=== PATIENT | female | born 1955 | race Hispanic/Latino ===

== ENCOUNTER 2016-12-10 08:40 | Emergency (ER) | payer MEDICARE, OTHER ==
[2016-12-10 08:47] VITALS: BMI 18.6
[2016-12-10] MEDS ORDERED: SILVER SULFADIAZINE 1% TP STA (08:52)
[2016-12-10] MEDS ORDERED: Naproxen 550 mg Tab PO STA (08:53)
--- NOTE | 2016-12-10 08:55 | ED PDOC ---
Arrival/HPI - General Chief Complaint: Medical Clearance Time Seen by Provider: 12/10/16 08:45 Historian: Caregiver - History of Present Illness Narrative History of Present Illness (Text): 12/10/16 08:55 Jessi Lieberman is a 61 year old female who was brought to the emergency department for evaluation of sunburn to neck and forehead. Caregiver states that patient was out on a picnic all day yesterday and states that sunscreen was applied. Patient with mental retardation at baseline. Denies any fever, chills, chest pain, shortness of breath, abdominal pain, nausea, vomiting, urinary symptoms, or any other complaints at this time. Time/Duration: Other (yesterday ) Symptom Onset: Gradual Severity Level: Mild Activities at Onset: Light Past Medical History - Provider Review Nursing Documentation Reviewed: Yes - Travel History Have you recently traveled outside [place] w/in the past 3 mons?: Yes - Infectious Disease Hx of Infectious Diseases: None - Tetanus Immunization Tetanus Immunization: Up to Date - Cardiac Hx Cardiac Disorders: No Hx Angina: No Hx Cardiac Arrhythmia: No Hx Circulatory Problems: No Hx Congestive Heart Failure: No Hx Heart Murmur: No Hx Heart Transplant: No Hx Hypertension: No Hx Internal Defibrillator: No Hx Mitral Valve Prolapse: No Hx Pacemaker: No Hx Peripheral Edema: No Hx Peripheral Vascular Disease: No - Pulmonary Hx Asthma: Yes - Neurological Hx Neurological Disorder: No Hx Alzheimer's Disease: No HX Cerebrovascular Accident: No Hx Dementia: No Hx Dizziness: No Hx Meningitis: No Hx Migraine: No Hx Parkinson's Disease: No Hx Seizures: No Hx Transient Ischemic Attacks (TIA): No - HEENT Hx Cataracts: Yes - Renal Hx Renal Disorder: No Hx Dialysis: No Hx Kidney Stones: No Hx Neurogenic Bladder: No Hx Pyelonephritis: No Hx Renal Cancer: No Hx Renal Failure: No - Endocrine/Metabolic Hx Endocrine Disorders: No Hx Adrenal Cancer: No Hx Diabetes Insipidus: No Hx Diabetes Mellitus Type 1: No Hx Diabetes Mellitus Type 2: No Hx Hyperthyroidism: No Hx Hypothyroidism: No Hx Systemic Lupus Erythematosus: No - Hematological/Oncological Hx Blood Disorders: No Hx AIDS: No Hx Anemia: No Hx Cancer: No Hx Chemotherapy: No Hx Cirrhosis: No Hx Hemophilia: No Hx Hepatitis A: No Hx Hepatitis B: No Hx Hepatitis C: No Hx Metastasis: No Hx Shingles: No Hx Sickle Cell Disease: No Hx Unexplained Bleeding: No - Integumentary Hx Dermatological Disorder: No Hx Basal Cell Carcinoma: No Hx Eczema: No Hx Melanoma: No Hx Psoriasis: No Hx Squamous Cell Carcinoma: No - Musculoskeletal/Rheumatological Hx Musculoskeletal Disorders: No Hx Arthritis: No Hx Back Pain: No Hx Degenerative Joint Disease: No Hx Falls: No Hx Fractures: No Hx Gout: No Hx Herniated Disk: No Hx Myasthenia Gravis: No Hx Osteoarthritis: No Hx Osteomyelitis: No Hx Osteoporosis: No Hx Rhabdomyolysis: No Hx Spinal Stenosis: No Hx Unsteady Gait: No - Gastrointestinal Hx Gastrointestinal Disorders: No Hx Colostomy: No Hx Crohn's Disease: No Hx Diverticulitis: No Hx Gall Bladder Disease: No Hx Gastroesophageal Reflux: No Hx Gastrointestinal Ulcer: No Hx Ileostomy: No Hx Liver Failure: No Hx Pancreatitis: No HX Swallowing Problems: No - Genitourinary/Gynecological Hx Genitourinary Disorders: No Hx Hematuria: No Hx Incontinence: No Hx Prostate Problems: No Hx Sexually Transmitted Diseases: No Hx Urinary Tract Infection: No - Psychiatric Hx Substance Use: No Other/Comment: Developmentally Disabled / None verbal / Follows commands / Able to point at things she needs i.e. bathroom, etc. - Surgical History Hx Cardiac Catheterization: No Hx Coronary Stent: No - Anesthesia Hx Anesthesia Reactions: No Hx Malignant Hyperthermia: No - Suicidal Assessment Feels Threatened In Home Enviroment: No Family/Social History - Physician Review Nursing Documentation Reviewed: Yes Family/Social History: Unknown Family HX Smoking Status: Never Smoked Hx Alcohol Use: No Hx Substance Use: No Hx Substance Use Treatment: No Allergies/Home Meds Allergies/Adverse Reactions: Allergies shrimp Allergy (Verified 12/10/16 08:47) ITCHING Home Medications: Home Meds Medication Instructions Recorded Confirmed Fluticasone Propionate 1 spray NS BID 08/11/12 06/21/14 Levothyroxine [Synthroid] 50 mcg PO DAILY 08/11/12 06/21/14 Loratadine [Claritin] 10 mg PO DAILY 08/11/12 06/21/14 Quetiapine Fumarate [Seroquel] 25 mg PO HS 08/11/12 06/21/14 Vitacon 625daily 625 mg PO DAILY 08/11/12 06/21/14 Diazepam [Diazepam] 5 mg PO BID 01/30/14 01/04/15 Divalproex Sodium [Depakote] 500 mg PO Q12 07/17/13 06/21/14 Megestrol Acetate [Megestrol 1 tsp PO DAILY 07/17/13 06/21/14 Acetate] Ammonium Lactate 12% [Lac-Hydrin] 1 ea TP DAILY 09/26/13 06/21/14 Review of Systems - Physician Review All systems were reviewed & negative as marked: Yes - Review of Systems Constitutional: Normal. absent: Fatigue, Fevers Respiratory: Normal. absent: SOB, Cough Cardiovascular: Normal. absent: Chest Pain, Palpitations Gastrointestinal: Normal. absent: Abdominal Pain, Diarrhea, Nausea, Vomiting Genitourinary Female: Normal Skin: Other (Sunburn to forehead and neck ) Physical Exam Vital Signs Reviewed: Yes Vital Signs Temp Pulse Resp BP Pulse Ox 12/10/16 09:29 98 F 75 20 142/53 L 98 12/10/16 08:40 97.4 F L 88 17 170/90 H 97 Temperature: Afebrile Blood Pressure: Normal Pulse: Regular Respiratory Rate: Normal Appearance: Positive for: Well-Appearing, Non-Toxic, Comfortable Pain Distress: None - Systems Exam Head: Present: Atraumatic, Normocephalic Pupils: Present: PERRL Conjunctiva: Present: Normal Mouth: Present: Moist Mucous Membranes Neck: Present: Normal Range of Motion Respiratory/Chest: Present: Clear to Auscultation, Good Air Exchange. No: Respiratory Distress, Accessory Muscle Use Cardiovascular: Present: Regular Rate and Rhythm, Normal S1, S2. No: Murmurs Abdomen: Present: Normal Bowel Sounds. No: Tenderness, Distention, Peritoneal Signs Upper Extremity: Present: Normal Inspection. No: Cyanosis, Edema Lower Extremity: Present: Normal Inspection. No: Edema Neurological: Present: GCS=15, CN II-XII Intact, Motor Func Grossly Intact, Normal Sensory Function Skin: Present: Warm, Dry, Normal Color, Other (1st degree burn to neck and forehead ). No: Rashes Psychiatric: Present: Alert Medical Decision Making ED Course and Treatment: 12/10/16 09:00 Impression: A 61 year old female who presents to the ed for evaluation of sunburn to neck and forehead Plan: -- silver sulfadiazine -- Naproxen Progress Notes: Patient is stable for discharge. Patient in no acute distress. Advised to present to emergency department for worsening symptoms. 1st degree velazquez 12/10/16 10:25 - Medication Orders Current Medication Orders: Discontinued Medications Naproxen (Anaprox Ds) 550 mg PO STAT STA Stop: 12/10/16 08:54 Last Admin: 12/10/16 09:00 Dose: 550 mg Silver Sulfadiazine (Silver Sulfadiazine) 25 gm TP STAT STA Stop: 12/10/16 08:53 Last Admin: 12/10/16 09:28 Dose: 25 gm - Scribe Statement The provider has reviewed the documentation as recorded by the Deann Adams Provider Attestation: All medical record entries made by the Deann were at my direction and personally dictated by me. I have reviewed the chart and agree that the record accurately reflects my personal performance of the history, physical exam, medical decision making, and the department course for this patient. I have also personally directed, reviewed, and agree with the discharge instructions and disposition. Disposition/Present on Arrival - Present on Arrival Any Indicators Present on Arrival: No History of DVT/PE: No History of Uncontrolled Diabetes: No Urinary Catheter: No (PT none-verbal) History of Decub. Ulcer: No History Surgical Site Infection Following: None - Disposition Have Diagnosis and Disposition been Completed?: Yes Diagnosis: Sunburn Disposition: HOME/ ROUTINE Disposition Time: 10:00 Condition: STABLE Discharge Instructions (ExitCare): Sunburn (ED), Skin Cancer Prevention (ED) Additional Instructions: return to er with worsening symptoms or concerns. Prescriptions: Naproxen 500 mg PO BID PRN #14 tab PRN Reason: Pain, Mild (1-3) Silver Sulfadiazine 25 gm TP DAILY #1 cream
[2016-12-10 09:30] VITALS: BP 142/53; PULSE 75; RESP 20; TEMP 98; O2SAT 98
== END 2016-12-10 09:34 | disposition home or self-care (01) ==
LOC: ED 08:40
DX: L55.0 Sunburn of first degree (principal)